=== PATIENT | male | born 1995 | race Caucasian/White ===

== ENCOUNTER 2024-04-16 09:00 | Outpatient (CLI) | payer BC ==
[2024-04-16 16:55] LABS: #Basophils 0.03 10x3/uL (0.0-0.2); %Basophils 0.4 % (0.0-1.0); %Eosinophils 0.4 % (0.0-10.0); %Lymphocytes 38.4 % (21.0-51.0); %Monocytes 7.1 % (0.0-10.0); %Neutrophils 53.6 % (42.0-75.0); Hematocrit 44.6 % (42.0-52.0); Hemoglobin 15.3 g/dL (14.0-18.0); Mean Corpuscular HGB CONC 34.3 g/dL (32.0-36.0); Mean Corpuscular Hemoglobin 28.8 pg (27.0-31.0); Mean Platelet Volume 8.5 fL (7.4-10.4); Platelet Count 238 10x3/uL (130-400); RBC Distribution Width 12.8 % (11.5-14.5); Red Blood Cell (RBC) Count 5.31 mill/uL (4.70-6.10)
[2024-04-16 17:10] LABS: INR-International Normal Ratio 1.1; PTT 27.8 sec (22.9-36.1); Prothrombin Time 14.2 sec (12.0-14.7)
[2024-04-16 17:16] LABS: Anion Gap 15 mmol/L (10-20); BUN (Urea Nitrogen) 21 mg/dL (8.9-20.6); Calc. Creatinine Clearance 0 mL/min (70-130); Calcium 9.3 mg/dL (7.8-10.44); Carbon Dioxide 24 mmol/L (22-29); Chloride 104 mmol/L (98-107); Estimated GFR 113; Glucose 110 mg/dL (70-105); Potassium 4.1 mmol/L (3.5-5.1); Sodium 139 mmol/L (136-145)
== END 2024-04-16 11:00 | disposition home or self-care (01) ==
LOC: LABBT 09:00
PROVIDERS: ATTEND Internal Medicine Cardiovascular Disease
DX: Z01.812 Encounter for preprocedural laboratory examination (principal); I47.10 Supraventricular tachycardia, unspecified
CPT/HCPCS: 80048; 85025; 85610; 85730

== ENCOUNTER 2024-04-19 08:44 | Day surgery (SDC) | payer BC ==
[2024-04-19] MEDS ORDERED: Midazolam HCl 2 mg/2 ml Vial ONE ×2 (10:09→11:37)
[2024-04-19] MEDS ORDERED: Protamine Sulfate 50 MG/5 ML VIAL ONE (10:20)
[2024-04-19] MEDS ORDERED: Heparin 10,000 UNITS/ 10 ML VIAL ONE (10:21)
[2024-04-19] MEDS ORDERED: Heparin 25,000 units/D5W 0 ML ONE (10:21)
[2024-04-19] MEDS ORDERED: Ondansetron PF 4 MG/2 ML Vial ONE (11:29)
[2024-04-19] MEDS ORDERED: fentaNYL 50 mcg/mL 1 mL Vial ONE (11:29)
[2024-04-19] MEDS ORDERED: PROPOFOL 20 ML ONE (11:30)
[2024-04-19] MEDS ORDERED: PHENYLEPHRINE-NS 100 MCG/ML 10 ML SYRINGE ONE (11:56)
[2024-04-19] MEDS ORDERED: Dexamethasone 20 MG/5 ML VIAL ONE (11:56)
[2024-04-19] MEDS ORDERED: Lidocaine 1% PF 5 ML VIAL ONE (11:56)
[2024-04-19] MEDS ORDERED: Isoproterenol 0.2 MG/1 ML AMP ONE (12:55)
== END 2024-04-19 16:15 | disposition home or self-care (01) ==
LOC: SDC 08:44
PROVIDERS: ATTEND Internal Medicine Cardiovascular Disease
PROC: 4A027FZ Measurement of Cardiac Rhythm, Via Natural or Artificial Opening (ICD-10-PCS; principal; 2024-04-19)
PROC: 4A0274Z Measurement of Cardiac Electrical Activity, Via Natural or Artificial Opening (ICD-10-PCS; principal; 2024-04-19)
DX: I47.10 Supraventricular tachycardia, unspecified (principal); Z79.899 Other long term (current) drug therapy
CPT/HCPCS: 93005; 93010; 93620; 93621; 93623; C1730; C1732; C1760; C1894; J1100; J1644; J2250; J2405; J2704; J2720; J3010